=== PATIENT | male | born 1945 | race Caucasian/White ===

== ENCOUNTER → 2020-03-08 | Outpatient (CLI) | payer MEDICARE, OTHER ==
[~2020-03-08] MED LIST: ACYC30OI2 TP; ALPR0.25 PO; AMIT25TA PO; ASPI-515 PO; AZEL137S6 NS; AZEL6DRO EACHEYE; CELE200C PO; CEVI30CA PO; CHONDROITIN MSM PO; DICL50TA4 PO; DONE10TA7 PO; EMOL45EM PO; FLUO30CR2 TP; GLUC-111 PO; GLUC15006 PO; HYDROCHLOROQUINE PO; IPRA14.7 INH; IRON PO; KETO5DRO EACHEYE; MAGN71.5 PO; OMEP-110 PO; OXYC20TA42 PO; POTA20TA14 PO; SAW500CA PO; TAMS0.4C2 PO; TRAM50TA2 PO; TRIA1CAP3 PO; TRIA1TAB5 PO; UBID50CA3 PO; VIT1TABL32 PO
== END | disposition home or self-care (01) ==
LOC: CFH 12:41
PROVIDERS: ATTEND Internal Medicine Cardiovascular Disease
DX: I10 Essential (primary) hypertension (principal)
CPT/HCPCS: 93306